=== PATIENT | male | born 1995 | race Hispanic/Latino ===

== ENCOUNTER 2019-04-03 00:13 | Emergency (ER) | payer SELFPAY ==
--- NOTE | 2019-04-03 01:49 | ER ---
Nurse's Notes [facility] Name: Jonatan Xie Age: 23 yrs Sex: Male : 1995 Arrival Date: 04/03/2019 Time: 00:18 Bed 7 Private MD: Diagnosis: Bimalleolar fracture of lower leg Presentation: 04/03 00:26 Presenting complaint: Patient states: swinging at a piata twisted his right ankle. 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 Transition of care: patient was not received from another setting of care. Onset of symptoms was April 03, 2019. Risk Assessment: Do you want to hurt yourself or someone else? Patient reports no desire to harm self or others. Initial Sepsis Screen: Does the patient meet any 2 criteria? No. Patient's initial sepsis screen is negative. Does the patient have a suspected source of infection? No. Patient's initial sepsis screen is negative. Care prior to arrival: None. 00:26 Method Of Arrival: Wheelchair ak1 00:26 Acuity: CHANTE 4 ak1 Triage Assessment: 00:30 General: Appears in no apparent distress. Behavior is calm, cooperative. Pain: ak1 Complains of pain in right ankle. Historical: - Allergies: 00:30 No Known Allergies; ak1 - Home Meds: 00:30 None [Active]; ak1 - PMHx: 00:30 Asthma; ak1 - PSHx: 00:30 arm sx for fx; ak1 - Immunization history:: Adult Immunizations unknown. - Social history:: Smoking status: Patient/guardian denies using tobacco. - Ebola Screening: : No symptoms or risks identified at this time. Screenin:37 Abuse screen: Denies threats or abuse. Nutritional screening: No deficits noted. ea Tuberculosis screening: No symptoms or risk factors identified. Fall Risk None identified. Assessment: 00:36 General: Appears in no apparent distress. Behavior is calm, cooperative, appropriate ea for age. Pain: Complains of pain in right ankle. Neuro: Level of Consciousness is awake, alert, obeys commands, Oriented to person, place, time, situation. Cardiovascular: Patient's skin is warm and dry. Respiratory: Airway is patent Respiratory effort is even, unlabored, Respiratory pattern is regular, symmetrical. Derm: abrasion to right knee. Musculoskeletal: Swelling present in right ankle. 00:37 Reassessment: Pt right ankle iced and elevated, pt tolerated well. ea 01:55 Reassessment: Patient and/or family updated on plan of care and expected duration. Pain ea level reassessed. Patient is alert, oriented x 3, equal unlabored respirations, skin warm/dry/pink. Discharge instructions given to patient, verbalized the understanding of instruction. Pt left via wheelchair accompanied by significant other, assisted to private vehicle, pt tolerated well. Vital Signs: 00:25 BP 115 / 82; Pulse 79; Resp 18; Temp 97.6; Pulse Ox 99% on R/A; Weight 108.86 kg (R); ak1 Height 6 ft. 3 in. (190.50 cm); Pain 7/10; 01:55 BP 112 / 66; Pulse 83; Resp 18; Temp 98; Pulse Ox 99% on R/A; ea 00:25 Body Mass Index 30.00 (108.86 kg, 190.50 cm) ak1 ED Course: 00:18 Patient arrived in ED. es 00:19 Sergo Darling, VENANCIO is Primary Nurse. rv 00:22 Mekhi Green PA is PHCP. jr8 00:22 Fredo Mcintosh MD is Attending Physician. jr8 00:25 Arm band placed on Patient placed in an exam room, on a stretcher, on pulse oximetry, ak1 Patient notified of wait time. 00:30 Triage completed. ak1 00:38 Patient has correct armband on for positive identification. Bed in low position. Call ea light in reach. 01:27 Cm Linares MD is Referral Physician. jr8 01:47 Crutch training done. Orthoglass splint: Posterior long leg splint applied on right mt leg. stirrup splint applied on right leg. 01:56 XRAY Ankle RIGHT 3 view In Process Unspecified. EDMS 02:07 No provider procedures requiring assistance completed. Patient did not have IV access ea during this emergency room visit. Administered Medications: No medications were administered Outcome: 01:27 Discharge ordered by . jr8 01:55 Discharged to home via wheelchair, with crutches, with significant other. ea 01:55 Condition: stable 01:55 Discharge instructions given to patient, Instructed on discharge instructions, follow up and referral plans. medication usage, Demonstrated understanding of instructions, follow-up care, medications, Prescriptions given X 2. 02:09 Patient left the ED. nazia Signatures: Dispatcher [employer] Velma Worley Josh, PA PA jr8 Luz Elena Larson RN RN ak1 Ame Brown mt, Elena, RN RN Sergo Duncan RN RN rv Corrections: (The following items were deleted from the chart) 00:32 00:26 Presenting complaint: Patient states: swinging at a pinata twisted his right ak1 ankle. 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 ak1
--- NOTE | 2019-04-03 01:50 | EDPHYS ---
Physician Documentation [facility] Name: Jonatan Xie Age: 23 yrs Sex: Male : 1995 Arrival Date: 04/03/2019 Time: 00:18 Bed 7 Private MD: ED Physician Fredo Mcintosh HPI: 04/03 01:12 This 23 yrs old Male presents to ER via Wheelchair with complaints of Ankle jr8 Injury. 01:12 The patient presents with decreased range of motion, pain, swelling, tenderness. The jr8 complaints affect the right ankle. Onset: The symptoms/episode began/occurred acutely, today. Context: The problem was sustained at home, resulted from the patient falling, The mechanism of injury involved inversion of the affected ankle. The patient can partially bear weight on the affected extremity. Associated signs and symptoms: The patient has no apparent associated signs or symptoms. Modifying factors: The symptoms are alleviated by nothing, the symptoms are aggravated by weight bearing. Severity of symptoms: At their worst the symptoms were mild, in the emergency department the symptoms are unchanged. The patient has not experienced similar symptoms in the past. The patient has not recently seen a physician. Historical: - Allergies: 00:30 No Known Allergies; ak1 - Home Meds: 00:30 None [Active]; ak1 - PMHx: 00:30 Asthma; ak1 - PSHx: 00:30 arm sx for fx; ak1 - Immunization history:: Adult Immunizations unknown. - Social history:: Smoking status: Patient/guardian denies using tobacco. - Ebola Screening: : No symptoms or risks identified at this time. ROS: 01:12 Eyes: Negative for injury, pain, redness, and discharge, ENT: Negative for injury, jr8 pain, and discharge, Neck: Negative for injury, pain, and swelling, Cardiovascular: Negative for chest pain, palpitations, and edema, Respiratory: Negative for shortness of breath, cough, wheezing, and pleuritic chest pain, Abdomen/GI: Negative for abdominal pain, nausea, vomiting, diarrhea, and constipation, Back: Negative for injury and pain, Skin: Negative for injury, rash, and discoloration, Neuro: Negative for headache, weakness, numbness, tingling, and seizure. 01:12 MS/extremity: Positive for abrasion, pain, swelling, tenderness, of the right leg and right ankle. Exam: 01:12 Eyes: Pupils equal round and reactive to light, extra-ocular motions intact. Lids and jr8 lashes normal. Conjunctiva and sclera are non-icteric and not injected. Cornea within normal limits. Periorbital areas with no swelling, redness, or edema. ENT: Nares patent. No nasal discharge, no septal abnormalities noted. Tympanic membranes are normal and external auditory canals are clear. Oropharynx with no redness, swelling, or masses, exudates, or evidence of obstruction, uvula midline. Mucous membranes moist. Neck: Trachea midline, no thyromegaly or masses palpated, and no cervical lymphadenopathy. Supple, full range of motion without nuchal rigidity, or vertebral point tenderness. No Meningismus. Cardiovascular: Regular rate and rhythm with a normal S1 and S2. No gallops, murmurs, or rubs. Normal PMI, no JVD. No pulse deficits. Respiratory: Lungs have equal breath sounds bilaterally, clear to auscultation and percussion. No rales, rhonchi or wheezes noted. No increased work of breathing, no retractions or nasal flaring. Abdomen/GI: Soft, non-tender, with normal bowel sounds. No distension or tympany. No guarding or rebound. No evidence of tenderness throughout. Back: No spinal tenderness. No costovertebral tenderness. Full range of motion. Skin: Warm, dry with normal turgor. Normal color with no rashes, no lesions, and no evidence of cellulitis. Neuro: Awake and alert, GCS 15, oriented to person, place, time, and situation. Cranial nerves II-XII grossly intact. Motor strength 5/5 in all extremities. Sensory grossly intact. Cerebellar exam normal. Normal gait. 01:12 Musculoskeletal/extremity: Extremities: grossly normal except: noted in the right leg: abrasion, noted in the right ankle: swelling, tenderness, ROM: intact in all extremities, full active range of motion, full passive range of motion, limited active range of motion due to pain, limited passive range of motion due to pain, Circulation is intact in all extremities. Sensation intact. Vital Signs: 00:25 BP 115 / 82; Pulse 79; Resp 18; Temp 97.6; Pulse Ox 99% on R/A; Weight 108.86 kg (R); ak1 Height 6 ft. 3 in. (190.50 cm); Pain 7/10; 01:55 BP 112 / 66; Pulse 83; Resp 18; Temp 98; Pulse Ox 99% on R/A; ea 00:25 Body Mass Index 30.00 (108.86 kg, 190.50 cm) ak1 Procedures: 01:26 Splinting: Splint applied to right leg using Orthoglass splint, applied by tech. nurse. jr8 Examined by me, post splint application: neurovascular intact, 2+ distal pulses palpable, brisk capillary refill noted, Patient tolerated well. MDM: 00:27 Patient medically screened. jr8 01:26 Data reviewed: vital signs, nurses notes, radiologic studies, plain films, and as a jr8 result, I will discharge patient. Data interpreted: Pulse oximetry: on room air is 99 %. Interpretation: normal. Counseling: I had a detailed discussion with the patient and/or guardian regarding: the historical points, exam findings, and any diagnostic results supporting the discharge/admit diagnosis, radiology results, the need for outpatient follow up, a orthopedic surgeon, to return to the emergency department if symptoms worsen or persist or if there are any questions or concerns that arise at home. 01:44 Test interpretation: by ED physician or midlevel provider: plain radiologic studies, jrImtiaz Bimalleolar fracture present right ankle. 04/03 00:26 Order name: XRAY Ankle RIGHT 3 view fc Administered Medications: No medications were administered Disposition: 05:59 Co-signature as Attending Physician, Fredo Mcintosh MD I agree with the assessment and tw4 plan of care. Disposition: 04/03/19 01:27 Discharged to Home. Impression: Bimalleolar fracture of lower leg. - Condition is Stable. - Discharge Instructions: Displaced Bimalleolar Ankle Fracture Treated With ORIF. - Prescriptions for Ibuprofen 800 mg Oral Tablet - take 1 tablet by ORAL route every 12 hours As needed take with food; 20 tablet. Tylenol- Codeine #3 300-30 mg Oral Tablet - take 2 tablets by ORAL route every 6 hours As needed; 12 tablet. - Medication Reconciliation Form, Thank You Letter, Antibiotic Education, Prescription Opioid Use form. - Follow up: Cm Linares MD; When: 2 - 3 days; Reason: Recheck today's complaints, Continuance of care, Re-evaluation by your physician. - Problem is new. - Symptoms have improved. Signatures: Dispatcher [employer] EDMS Mekhi Green PA PA jr8 Luz Elena Larson, RN RN ak1 Coty Aguilar RN RN Fredo Wilson MD MD tw4 Corrections: (The following items were deleted from the chart) 02:09 01:27 04/03/2019 01:27 Discharged to Home. Impression: Bimalleolar fracture of lower ea leg. Condition is Stable. Forms are Medication Reconciliation Form, Thank You Letter, Antibiotic Education, Prescription Opioid Use. Follow up: Cm Linares; When: 2 - 3 days; Reason: Recheck today's complaints, Continuance of care, Re-evaluation by your physician. Problem is new. Symptoms have improved. jr8
--- NOTE | 2019-04-03 11:38 | RAD REPORT ---
EXAM DESCRIPTION: RAD - Ankle Right 3 View - 04/03/2019 1:12 am CLINICAL HISTORY: Right ankle pain FINDINGS: Mildly displaced oblique fracture lateral malleolus. Avulsion fracture medial malleolus No dislocation
== END 2019-04-03 02:09 | disposition home or self-care (01) ==
LOC: ER 00:13
PROC: 2W3QX1Z Immobilization of Right Lower Leg using Splint (ICD-10-PCS; principal; 2019-04-03)
DX: S82.841A Displaced bimalleolar fracture of right lower leg, initial encounter for closed fracture (principal); W19.XXXA Unspecified fall, initial encounter; Y93.9 Activity, unspecified; Y92.009 Unspecified place in unspecified non-institutional (private) residence as the place of occurrence of the external cause
CPT/HCPCS: 99284